=== PATIENT | female | born 1980 | race American Indian/Alaskan Native ===

== ENCOUNTER 2020-03-27 09:59 | Emergency (ER) | payer SELFPAY ==
[2020-03-27 10:06] VITALS: BP 109/53
--- NOTE | 2020-03-27 12:03 | Emergency Department Report ---
Chief Complaint: Wound/Laceration Stated Complaint: WOUND CHECK Time Seen by Provider: 03/27/20 11:50 - HPI History of Present Illness: The patient was evaluated in the emergency department for symptoms described in the history of present illness. He/she was evaluated in the context of the global COVID-19 pandemic, which necessitated consideration that the patient might be at risk for infection with the virus that causes COVID-19. Institutional protocols and algorithms that pertain to the evaluation of patients at risk for COVID-19 are in a state of rapid change based on information released by regulatory bodies including the CDC and federal and state organizations. These policies and algorithms were followed during the patient's care in the emergency department. Please note that these policies, procedures and recommendations changed on a rapid basis. 39-year-old -[place] female presents to the emergency room to come and have her LAURA drains removed. Patient reports that she had surgery for tummy tuck in [place] 3 weeks ago and comes today to have her LAURA drains removed. Patient denies any fever no chills no nausea no vomiting. Patient states that her LAURA drain has stop draining. She denies much pain just says that she is sore. - Exam Vital Signs: Vital Signs 03/27/20 10:05 Temperature 99.0 F Pulse Rate 94 H Respiratory 16 Rate Blood Pressure 109/53 [Right] O2 Sat by Pulse 98 Oximetry Physical Exam: Patient is alert and oriented x3 no acute distress nontoxic in appearance Abdomen soft nontender J-tube in left groin no erythematous or discharge from the site. Patient is ambulatory without difficulty. MSE screening note: Focused history and physical exam performed. Due to findings the following was ordered: 39-year-old -[place] female presents to the emergency room to come and have her LAURA drains removed. Patient reports that she had surgery for tummy tuck in [place] 3 weeks ago and comes today to have her LAURA drains removed. Patient denies any fever no chills no nausea no vomiting. Patient states that her LAURA drain has stop draining. She denies much pain just says that she is sore. Discussed with ER attending and they recommend referral to plastics surgery for evaluation removal of J-tube. ED Disposition for MSE Disposition: MED SCREENING EXAM-LEFT Is pt being admited?: No Does the pt Need Aspirin: No Condition: Stable Additional Instructions: Recommend to follow-up with a plastic surgeon you can google or ask your insurance which one they cover. Referrals: PRIMARY CARE, [Primary Care Provider] - 3-5 Days DOUG MULLIGAN MD [Staff Physician] - 3-5 Days FRENY YARBROUGH MD [Staff Physician] - 3-5 Days ELTON GO MD [Staff Physician] - 3-5 Days
== END 2020-03-27 12:09 | disposition left against medical advice (07) ==
LOC: ED 09:59
DX: Z53.21 Procedure and treatment not carried out due to patient leaving prior to being seen by health care provider (principal)